=== PATIENT | male | born 1985 | race Caucasian/White ===

== ENCOUNTER 2018-10-08 06:36 | Emergency (ER) | payer SELFPAY ==
[2018-10-08 06:40] VITALS: BP 146/77; PULSE 96; RESP 18; TEMP 36.7; O2SAT 98
--- NOTE | 2018-10-08 06:58 | W.ED.GENAD ---
Discharge Plan Disposition Patient Disposition: HOME Discharge Details Chief Complaint: Sorethroat Clinical Impression: Acute streptococcal pharyngitis [place] [facility] [place] [facility] [place] Primary Care Provider: None,None ED Provider: Reymundo Peña Home Meds and New Rx's Prescriptions: New azithromycin 250 mg tablet See Rx Instructions .ROUTE .COMPLEX Qty: 6 RF: 0 Discharge Instructions Instructions: Strep Throat (ED) Additional Instructions: Please take the antibiotic as prescribed. Be sure to complete the full course. Please take ibuprofen over the counter - dose according to label. Please contact your primary care physician to arrange follow-up as needed. Return to the ER for any worsening or new concerning symptoms. Medical Decision Making 33-year-old male here with strep pharyngitis. Patient is afebrile and otherwise well-appearing. Patient has penicillin allergy. Plan to treat with azithromycin. Usual and customary discharge instructions were provided [facility] General Mode of arrival: ambulatory. Date/Time Provider Initiated Documentation: 10/08/18 06:42. Limitations to Documentation: no limitations. Information obtained by: patient. HPI Narrative: 33-year-old male presents with chief complaint of sore throat. Patient notes 5 days of worsening sore throat. Pain started in the right side and now is bilateral. Pain is moderate. Worse with swallowing. Improved with ibuprofen. Patient denies associated fever. No rash. No cough. His children and are also sick with sore throat that is been confirmed strep. Related Data Home Medications Medication Instructions Recorded Confirmed azithromycin See Rx Instructions .ROUTE 10/08/18 .COMPLEX #6 tab Previous Rx's Medication Instructions Recorded azithromycin See Rx Instructions .ROUTE 10/08/18 .COMPLEX #6 tab Allergies Allergy/AdvReac Type Severity Reaction Status Date / Time Penicillins Allergy Mild Skin Rash Unverified 09/06/13 13:12 General Stated Complaint: Sorethroat REBEKA: 4 Review of Systems Constitutional Reports as per HPI ENT Reports as per HPI Respiratory Reports as per HPI Integumentary/Breasts Reports as per HPI PFSH Social History Smoking/Tobacco Use Status: Former Tobacco Use Exam Const General: cooperative and no acute distress HENMT Head: normocephalic and atraumatic Mouth: moist mucous membranes Teeth and gingiva: poor dentition Throat: uvula midline, no peritonsillar masses, posterior oropharynx abnormal erythema and exudates and no uvular edema Other: No trismus Eyes Conjunctivae: normal conjunctivae Sclera: normal sclerae Neck Neck: trachea midline and supple Resp Auscultation: clear to auscultation bilaterally Cardio Rate: not tachycardic GI Palpation: soft, not firm, no guarding, no masses, not rigid and nontender Skin General skin exam: no rashes or lesions noted Neuro General: alert and awake Course Vital Signs Temperature 36.7 C 10/08/18 06:40 Pulse 96 H 10/08/18 06:40 Respiratory Rate 18 10/08/18 06:40 Blood Pressure 146/77 H 10/08/18 06:40 Pulse Oximetry 98 10/08/18 06:40 Temperature 36.7 C 10/08/18 06:40 Temperature Source Skin 10/08/18 06:40 Pulse 96 H 10/08/18 06:40 Respiratory Rate 18 10/08/18 06:40 Blood Pressure 146/77 H 10/08/18 06:40 Pulse Oximetry 98 10/08/18 06:40 Oxygen Delivery Method Room Air 10/08/18 06:40 Oxygen Flow Rate 0 10/08/18 06:40 Pain Level 9 10/08/18 06:40 Lab/Test Results Lab/Test Results: POC Strep Test-LY(Rapid) Start: 10/08/18 06:46 Freq: .Rapid Strep Test Status: Active Protocol: Document 10/08/18 06:57 RL (Rec: 10/08/18 06:57 RL [id number]) Strep test-LY(Rapid)-POC POC-Strep test-LY (Rapid) Positive POC-Strep test-LY (Rapid) Positive
== END 2018-10-08 07:08 | disposition home or self-care (01) ==
LOC: ER 07:23
PROVIDERS: Emergency Provider Student in an Organized Health Care Education/Training Program
DX: J02.0 Streptococcal pharyngitis (principal); Z87.891 Personal history of nicotine dependence
CPT/HCPCS: 87880; 99283